=== PATIENT | male | born 1995 | race Caucasian/White ===

== ENCOUNTER 2016-12-09 22:07 | Emergency (ER) | payer BC, OTHER ==
[~2016-12-09] VITALS: Ht 193 cm; Wt 89.7 kg
[2016-12-09 22:16] VITALS: BP 81/49; TEMP 36.4; Ht 193 cm; Wt 89.7 kg
[2016-12-09] MEDS ORDERED: DiphenhydrAMINE HCL 50 MG/ML VIAL IV STA (22:26)
[2016-12-09] MEDS ORDERED: FAMOTIDINE 20MG/102 ML D5W IV STA (22:26)
[2016-12-09] MEDS ORDERED: METHYLPREDNISOLONE 125 MG VIAL IV STA (22:26)
--- NOTE | 2016-12-09 22:33 | EMERGENCY ROOM VISIT NOTE ---
History Report prepared by Estefanyibmichell: Juan Ramon Ortiz Under the Supervision of: Dr. Ari Parra D.O. First contact with patient: 22:21 Chief Complaint: ALLERGIC REACTION Stated Complaint: ALLERGIC REACTION,NUT ALLERGY History of Present Illness The patient is a 21 year old male who presents to the Emergency Room with complaints of an acute allergic reaction that started at approximately 1929. The patient complains of a diffuse erythematous rash and some trouble breathing. The patient used an EpiPen around 2019 and notes that his symptoms improved slightly, but then worsened 30 minutes later. The patient had a tab of Benadryl prior to arrival. The patient has a well known nut allergy, and he ate pesto around 1829. The patient has had reactions like this before. He has no known medication allergies. Source of History: patient Onset: 1929 tonight Position: other (global) Quality: other (allergic reaction) Timing: other (acute) Modifying Factors (Relieving): other (epinephrine) Associated Symptoms: + SOB, + rash Review of Systems See HPI for pertinent positives and negatives. A total of ten systems were reviewed and were otherwise negative. Past Medical & Surgical Medical Problems: (1) Tree nut allergy Family History No pertinent family history Social History Smoking Status: Never Smoker Housing Status: lives with family Current/Historical Medications Scheduled PRN Diphenhydramine Hcl (Benadryl Allergy), 25 MG PO DIRECTED PRN for ALLERGIC REACTION Epinephrine (Epipen), 0.3 MG IM UD PRN for ALLERGIC REACTION Allergies Coded Allergies: Freestone Nut (Verified Allergy, Intermediate, RASH, 12/09/16) Rogers (Verified Allergy, Intermediate, RASH, 12/09/16) Wilmer (Verified Allergy, Mild, 12/09/16) Cashew (Verified Allergy, Mild, 12/09/16) Peanut (Verified Allergy, Mild, 12/09/16) Physical Exam Vital Signs Date Time Temp Pulse Resp B/P Pulse Ox O2 Delivery O2 Flow Rate FiO2 12/09/16 23:21 91 16 98 Room Air 12/09/16 22:51 Room Air 12/09/16 22:16 36.4 76 20 81/49 96 Room Air Physical Exam GENERAL: Awake, alert, well-appearing, in no distress HENT: Normocephalic, atraumatic. Oropharynx unremarkable. EYES: Normal conjunctiva. Sclera non-icteric. NECK: Supple. No nuchal rigidity. FROM. No JVD. RESPIRATORY: Clear to auscultation. CARDIAC: Regular rate, normal rhythm. Extremities warm and well perfused. Pulses equal. ABDOMEN: Soft, non-distended. No tenderness to palpation. No rebound or guarding. No masses. RECTAL: Deferred. MUSCULOSKELETAL: Chest examination reveals no tenderness. The back is symmetrical on inspection without obvious abnormality. There is no CVA tenderness to palpation. No joint edema. LOWER EXTREMITIES: Calves are equal size bilaterally and non-tender. No edema. No discoloration. NEURO: Normal sensorium. No sensory or motor deficits noted. SKIN: Diffuse erythematous urticarial rash. Medical Decision & Procedures Medications Administered Medications (Trade) Dose Ordered Sig/Josh Route Start Time Stop Time Status Last Admin Dose Admin Diphenhydramine HCl (Benadryl Inj) 50 mg NOW STAT IV 12/09/16 22:26 12/09/16 22:28 DC 12/09/16 22:49 50 MG Methylprednisolone Sodium Succinate (Solu-Medrol IV) 125 mg NOW STAT IV 12/09/16 22:26 12/09/16 22:28 DC 12/09/16 22:49 125 MG Famotidine (Pepcid 20mg/100 ml) 20 mg ONE STAT IV 12/09/16 22:26 12/09/16 22:28 DC 12/09/16 22:49 20 MG ED Course 5: The patient was evaluated in room C6. A complete history and physical exam was performed. 6: Famotidine 20 mg IV, Solu-Medrol 125 mg IV, Benadryl 50 mg IV. 2320: Reassessed the patient. Discussed the discharge instructions. He verbalized understanding. The patient will be prepared for discharge. Medical Decision Differential diagnosis includes allergic reaction, food allergy, urticarial rash , dermatitis. Doubt anaphylactic shock. Patient feels much improved at 2320 patient has no evidence of anaphylactic shock his rash has disappeared. Impression Primary Impression: Allergic reaction Scribe Attestation The scribe's documentation has been prepared under my direction and personally reviewed by me in its entirety. I confirm that the note above accurately reflects all work, treatment, procedures, and medical decision making performed by me. Departure Information Dispostion Home / Self-Care Referrals Markell Winn M.D. (PCP) Forms HOME CARE DOCUMENTATION FORM, IMPORTANT VISIT INFORMATION Patient Instructions ED Allergic Reaction Drug Ness, Bonita [facility] Problem Qualifiers Primary Impression: Allergic reaction Encounter type: initial encounter Qualified Codes: T78.40XA - Allergy, unspecified, initial encounter
[2016-12-09] MEDS ORDERED: DIPH1TAB87 PO (22:49)
[2016-12-09] MEDS ORDERED: EPP3/2 IM (22:49)
[2016-12-09 23:21] VITALS: PULSE 91; O2SAT 98
== END 2016-12-09 23:35 | disposition home or self-care (01) ==
LOC: C.EDB 22:07 → C.EDC 23:35
DX: T78.40XA Allergy, unspecified, initial encounter (principal); X58.XXXA Exposure to other specified factors, initial encounter; Z91.018 Allergy to other foods